=== PATIENT | male | born 1970 | race Two or more races ===

== ENCOUNTER 2022-06-06 16:08 | Emergency (ER) | payer BC ==
[~2022-06-06] VITALS: Ht 170.2 cm; Wt 68.9 kg
[2022-06-06] MEDS ORDERED: LET SOLN TOPICAL 8 ML UDC TP ONE (16:58)
[2022-06-06] MEDS ORDERED: BACITRACIN ZINC OINT PACKET 1 EA PACKET TP ONE ×2 (16:59→17:00)
[2022-06-06] MEDS ORDERED: HYDROCODONE/APAP 10/325MG TABLET PO ONE (17:00)
[2022-06-06] MEDS ORDERED: LIDOCAINE 2% JEL 5 ML TUBE MC ONE (17:00)
[2022-06-06] MEDS ORDERED: KETOROLAC TROMETHAMINE INJ 60 MG/2 ML VIAL IM ONE ×2 (17:00→17:04)
[2022-06-06] MEDS ORDERED: LIDO30CR TP (17:02)
[2022-06-06] MEDS ORDERED: IBUP-1953 PO (17:02)
[2022-06-06] MEDS ORDERED: NEOM28.38 TP (17:02)
[2022-06-06] MEDS ORDERED: LIDOCAINE 2% JEL 5 ML TUBE ONE (17:04)
[2022-06-06] MEDS ORDERED: HYDROCODONE/APAP 10/325MG TABLET ONE (17:05)
[2022-06-06 17:59] VITALS: BP 132/80
== END 2022-06-06 18:01 | disposition home or self-care (01) ==
LOC: ER 16:17
DX: T23.001A Burn of unspecified degree of right hand, unspecified site, initial encounter (principal); X19.XXXA Contact with other heat and hot substances, initial encounter; Y93.89 Activity, other specified; Y92.89 Other specified places as the place of occurrence of the external cause; Y99.8 Other external cause status
CPT/HCPCS: 99283; 96372; J1885; A6403; A4217